=== PATIENT | female | born 1950 | race Caucasian/White ===

== ENCOUNTER 2019-04-12 06:46 | Day surgery (SDC) | payer OTHER ==
[~2019-04-12] VITALS: Ht 162.6 cm; Wt 83.7 kg
[~2019-04-12 06:46] MED LIST: ASPI325 PO; CHOL10002 PO; OXYACE5T PO; RANI150 PO
== END 2019-04-12 08:43 | disposition home or self-care (01) ==
LOC: ORSCSDS 06:46
PROVIDERS: Surgery
PROC: 0DJD8ZZ Inspection of Lower Intestinal Tract, Via Natural or Artificial Opening Endoscopic (ICD-10-PCS; principal; 2019-04-12 08:00)
DX: Z12.11 Encounter for screening for malignant neoplasm of colon (principal); Z86.010 Personal history of colon polyps; K57.30 Diverticulosis of large intestine without perforation or abscess without bleeding; Z79.82 Long term (current) use of aspirin; E78.5 Hyperlipidemia, unspecified; E66.9 Obesity, unspecified; Z68.32 Body mass index [BMI] 32.0-32.9, adult; Z79.899 Other long term (current) drug therapy
CPT/HCPCS: J0330; J0461; J2405; J2704; J7120

== ENCOUNTER → 2020-09-28 | Outpatient (CLI) | payer OTHER | LOC: LAB 09:15 → LAB SHORT 09:15 | DX: R30.0 Dysuria (principal) | CPT/HCPCS: 87077; 87086; 87186 ==

== ENCOUNTER → 2020-11-13 | Outpatient (CLI) | payer OTHER | END | disposition home or self-care (01) | LOC: LAB 14:30 → LAB SHORT 14:30 | DX: R30.0 Dysuria (principal); M54.5 Low back pain; G89.29 Other chronic pain | CPT/HCPCS: 87086 ==

== ENCOUNTER → 2022-09-08 | Outpatient (CLI) | payer OTHER | END | disposition home or self-care (01) | LOC: LAB 17:16 → LAB SHORT 17:16 | DX: R82.90 Unspecified abnormal findings in urine (principal) | CPT/HCPCS: 87086 ==

== ENCOUNTER → 2023-01-17 | Outpatient (CLI) | payer OTHER | END | disposition home or self-care (01) | LOC: LAB 14:06 → LAB SHORT 14:06 | DX: R35.0 Frequency of micturition (principal) | CPT/HCPCS: 87086 ==

== ENCOUNTER → 2023-03-02 | Outpatient (CLI) | payer OTHER | END | disposition home or self-care (01) | LOC: LAB SHORT 12:02 → PLD 12:02 | DX: L57.0 Actinic keratosis (principal) | CPT/HCPCS: 88305 ==

== ENCOUNTER → 2023-03-16 | Outpatient (CLI) | payer OTHER | LOC: LAB 09:30 → LAB SHORT 09:30 | DX: Z13.29 Encounter for screening for other suspected endocrine disorder (principal) | CPT/HCPCS: 82533 ==

== ENCOUNTER → 2023-05-19 | Outpatient (CLI) | payer OTHER | END | disposition home or self-care (01) | LOC: LAB 10:08 → LAB SHORT 10:08 | DX: C76.8 Malignant neoplasm of other specified ill-defined sites (principal) | CPT/HCPCS: 88305 ==

== ENCOUNTER → 2023-06-07 | Outpatient (CLI) | payer OTHER | LOC: LAB SHORT 09:23 → LAB 09:23 | DX: C44.529 Squamous cell carcinoma of skin of other part of trunk (principal) | CPT/HCPCS: 88305 ==

== ENCOUNTER 2023-12-27 07:49 | Day surgery (SDC) | payer OTHER ==
[~2023-12-27] VITALS: Ht 162.6 cm; Wt 69.1 kg
[~2023-12-27 07:49] MED LIST changes: +Balanced Salt Epinephrine Irrigation Solution 500 mL IR SCH; +Lidocaine HCl/Pf 1% 5 ML VIAL XX SCH; +Moxifloxacin HCL 0.5 MG/0.1 ML 0.4MLSYR RIGHTEYE SCH; +NS 1,000 ML ONE; +NS 500 ML IV ONE; +PHENYLEPHRINE\\TROPICAMIDE\\TETRACAINE OPHTHALMIC DILATING SOLN RIGHTEYE PRN; +Povidone-Iodine 450 DROP/30 ML Solution RIGHTEYE SCH
[2023-12-27] MEDS ORDERED: FentaNYL Citrate 50 MCG/ML 2 ML Injection ONE (08:10)
[2023-12-27] MEDS ORDERED: Midazolam HCl 1MG / ML 2ML Vial ONE (08:10)
[2023-12-27] MEDS ORDERED: NS 1,000 ML IV ONE (08:12)
[2023-12-27] MEDS ORDERED: Colace250 MG (08:13)
[2023-12-27] MEDS ORDERED: Milk Thistle175 M1 (08:14)
[2023-12-27] MEDS ORDERED: PROBIOTIC1 EA14 (08:14)
--- NOTE | 2023-12-27 09:15 | NUR ---
12/27/23 0915 Marissa Calvert EYE PREPPED BY AICHA KATZ.
[2023-12-27 09:36] VITALS: BP 107/64
== END 2023-12-27 09:52 | disposition home or self-care (01) ==
LOC: ORSCSDS 07:49
PROVIDERS: Student in an Organized Health Care Education/Training Program
PROC: 08RJ3JZ Replacement of Right Lens with Synthetic Substitute, Percutaneous Approach (ICD-10-PCS; principal; 2023-12-27 09:00)
DX: H25.813 Combined forms of age-related cataract, bilateral (principal); G62.9 Polyneuropathy, unspecified; E78.5 Hyperlipidemia, unspecified; K21.9 Gastro-esophageal reflux disease without esophagitis
CPT/HCPCS: J2250; J3010; J7040; V2632

== ENCOUNTER 2024-01-10 08:51 | Day surgery (SDC) | payer OTHER ==
[~2024-01-10] VITALS: Ht 162.6 cm; Wt 69.7 kg
[~2024-01-10 08:51] MED LIST changes: +Colace250 MG; +Milk Thistle175 M1; +Moxifloxacin HCL 0.5 MG/0.1 ML 0.4MLSYR LEFTEYE SCH; -Moxifloxacin HCL 0.5 MG/0.1 ML 0.4MLSYR RIGHTEYE SCH; -NS 1,000 ML ONE; +PHENYLEPHRINE\\TROPICAMIDE\\TETRACAINE OPHTHALMIC DILATING SOLN LEFTEYE PRN; -PHENYLEPHRINE\\TROPICAMIDE\\TETRACAINE OPHTHALMIC DILATING SOLN RIGHTEYE PRN; +PROBIOTIC1 EA14; +Povidone-Iodine 450 DROP/30 ML Solution LEFTEYE SCH; -Povidone-Iodine 450 DROP/30 ML Solution RIGHTEYE SCH
[2024-01-10] MEDS ORDERED: CALCIUM (09:12)
[2024-01-10] MEDS ORDERED: NS 500 ML IV ONE (09:26)
--- NOTE | 2024-01-10 09:50 | NUR ---
[facility]10/[address] [facility] ALLERGY TO CIPROFLOXACIN AND PT UNSURE OF REACTION, PER DR BLOCK OK TO PROCEED
[2024-01-10] MEDS ORDERED: FentaNYL Citrate 50 MCG/ML 2 ML Injection ONE (10:14)
[2024-01-10] MEDS ORDERED: Midazolam HCl 1MG / ML 2ML Vial ONE (10:14)
[2024-01-10 10:39] VITALS: BP 113/61
== END 2024-01-10 11:05 | disposition home or self-care (01) ==
LOC: ORSCSDS 08:51
PROVIDERS: Student in an Organized Health Care Education/Training Program
PROC: 08RK3JZ Replacement of Left Lens with Synthetic Substitute, Percutaneous Approach (ICD-10-PCS; principal; 2024-01-10 10:00)
DX: H25.812 Combined forms of age-related cataract, left eye (principal); Z96.1 Presence of intraocular lens; E78.5 Hyperlipidemia, unspecified; K21.9 Gastro-esophageal reflux disease without esophagitis; Z85.3 Personal history of malignant neoplasm of breast
CPT/HCPCS: J2250; J3010; J7040; V2632

== ENCOUNTER 2024-05-11 07:35 | Day surgery (SDC) | payer OTHER ==
[~2024-05-11] VITALS: Ht 162.6 cm; Wt 58.2 kg
[~2024-05-11 07:35] MED LIST changes: -Balanced Salt Epinephrine Irrigation Solution 500 mL IR SCH; +CALCIUM; +Lactated Ringer's 1,000 ML IV ONE; -Lidocaine HCl/Pf 1% 5 ML VIAL XX SCH; -Moxifloxacin HCL 0.5 MG/0.1 ML 0.4MLSYR LEFTEYE SCH; -NS 500 ML IV ONE; -PHENYLEPHRINE\\TROPICAMIDE\\TETRACAINE OPHTHALMIC DILATING SOLN LEFTEYE PRN; -Povidone-Iodine 450 DROP/30 ML Solution LEFTEYE SCH; +propofoL 50 ML IV ONE
[2024-05-11] MEDS ORDERED: Lactated Ringer's 1,000 ML IV ONE (09:09)
[2024-05-11 10:23] VITALS: BP 105/68
== END 2024-05-11 10:27 | disposition home or self-care (01) ==
LOC: ORSCSDS 07:35
DX: Z12.11 Encounter for screening for malignant neoplasm of colon (principal); D12.0 Benign neoplasm of cecum; D12.2 Benign neoplasm of ascending colon; K63.5 Polyp of colon; K57.30 Diverticulosis of large intestine without perforation or abscess without bleeding; Z86.0101 Personal history of adenomatous and serrated colon polyps; K21.9 Gastro-esophageal reflux disease without esophagitis; E78.5 Hyperlipidemia, unspecified; Z85.3 Personal history of malignant neoplasm of breast
CPT/HCPCS: 88305; J2704; J7120